=== PATIENT | male | born 1930 | race Hispanic/Latino ===

== ENCOUNTER 2017-02-14 22:51 | Emergency (ER) | payer MEDICARE, BC ==
[2017-02-14 23:14] VITALS: TEMP 97.7; O2SAT 97
[2017-02-14 23:25] VITALS: BMI 32.7
--- NOTE | 2017-02-14 23:47 | ED PDOC ---
Arrival/HPI - History of Present Illness Time/Duration: 24 hours Symptom Onset: Sudden Symptom Course: Worsening Context: Home <Bernadette Díaz - Last Filed: 02/15/17 01:23> <Pa Roldan - Last Filed: 02/15/17 21:18> - General Time Seen by Provider: 02/14/17 22:59 - History of Present Illness Narrative History of Present Illness (Text): 02/14/17 23:45 87 y/o M with past medical history of CAD on plavix and aspirin presents for bleeding from behind the left ear. Patient had biopsy of lesion yesterday at his doctor's office. Lesion had bandage over it. This morning when patient woke up, lesion began bleeding. (Bernadette Díaz) Past Medical History - Provider Review Nursing Documentation Reviewed: Yes - Travel History Have you recently traveled outside [place] w/in the past 3 mons?: No - Cardiac Hx Pacemaker: No - Neurological Hx Paralysis: No - Hematological/Oncological Hx Blood Transfusions: No Hx Blood Transfusion Reaction: No - Musculoskeletal/Rheumatological Hx Musculoskeletal Disorders: Yes - Psychiatric Hx Emotional Abuse: No Hx Physical Abuse: No Hx Substance Use: No - Surgical History Other/Comment: Cardiac bypass - Anesthesia Hx Anesthesia: Yes Hx Anesthesia Reactions: No Hx Malignant Hyperthermia: No - Suicidal Assessment Feels Threatened In Home Enviroment: No <Bernadette Díaz - Last Filed: 02/15/17 01:23> Family/Social History - Physician Review Nursing Documentation Reviewed: Yes Family/Social History: Unknown Family HX Smoking Status: Never Smoked Hx Alcohol Use: Yes (SCOTCH 2-3 PER WEEK) Hx Substance Use: No <Bernadette Daíz - Last Filed: 02/15/17 01:23> Allergies/Home Meds <Bernadette Díaz - Last Filed: 02/15/17 01:23> <Pa Roldan - Last Filed: 02/15/17 21:18> Allergies/Adverse Reactions: Allergies No Known Allergies Allergy (Verified 02/14/17 23:30) Home Medications: Home Meds Medication Instructions Recorded Confirmed Aspirin [Aspir 81] 81 mg PO DAILY 02/23/12 02/14/17 Atorvastatin Calcium 40 mg PO DAILY 02/23/12 02/14/17 Cholecalciferol (Vitamin D3) 50,000 unit PO Wed03/11/1617 [Vitamin D3] Clopidogrel [Plavix] 75 mg PO DAILY 03/11/16 02/14/17 Enalapril Maleate [Vasotec] 2.5 mg PO QAM 03/11/16 02/14/17 Isosorbide Mononitrate [Imdur] 60 mg PO QAM 03/11/16 02/14/17 Metoprolol Succinate 12.5 mg PO BID 03/11/16 02/14/17 Saxagliptin HCl [Onglyza] 5 mg PO QAM 03/11/16 02/14/17 Review of Systems - Review of Systems Constitutional: Normal. absent: Fatigue, Fevers Eyes: Normal. absent: Photophobia ENT: Normal. absent: Hearing Changes, Tinnitus, TMJ Pain Respiratory: Normal. absent: SOB, Cough, Sputum, Wheezing Cardiovascular: Normal. absent: Chest Pain, Edema, Calf Pain Gastrointestinal: Normal. absent: Constipation, Diarrhea, Nausea, Vomiting Genitourinary Male: Normal. absent: Dysuria, Frequency, Hematuria Musculoskeletal: Normal. absent: Arthralgias, Back Pain, Neck Pain Skin: Other (site of biopsy behind left ear that is noted to be oozing blood. ) Neurological: Normal. absent: Headache Endocrine: Normal. absent: Diaphoresis Hemo/Lymphatic: Normal, Easy Bleeding. absent: Adenopathy <Bernadette Díaz - Last Filed: 02/15/17 01:23> Physical Exam Vital Signs Reviewed: Yes Temperature: Afebrile Blood Pressure: Normal Pulse: Regular Respiratory Rate: Normal Appearance: Positive for: Well-Appearing, Non-Toxic, Comfortable Pain Distress: None Mental Status: Positive for: Alert and Oriented X 3 - Systems Exam Head: Present: Atraumatic, Normocephalic Pupils: Present: PERRL Extroacular Muscles: Present: EOMI Conjunctiva: Present: Normal Ears: Present: Other (bleeding from behind left ear ) Mouth: Present: Moist Mucous Membranes Neck: Present: Normal Range of Motion Respiratory/Chest: No: Respiratory Distress, Accessory Muscle Use Abdomen: No: Tenderness, Distention Upper Extremity: No: Edema Lower Extremity: No: Edema, CALF TENDERNESS Neurological: Present: GCS=15 Skin: Present: Warm, Dry, Normal Color, Other (lesion behind left ear ). No: Rashes Psychiatric: Present: Alert, Oriented x 3, Normal Insight, Normal Concentration <Bernadette Díaz - Last Filed: 02/15/17 01:23> Medical Decision Making <Bernadette Díaz - Last Filed: 02/15/17 01:23> <Pa Roldan - Last Filed: 02/15/17 21:18> ED Course and Treatment: 02/14/17 23:50 87 y/o male presents for bleeding from behind left ear from site of skin biopsy. Bleeding is controlled with cauterization. 02/15/17 00:54 Slight bleeding noted even after cauterization. Gel Foam applied to area. 02/15/17 01:25 Bleeding stopped after gel foam (Bernadette Díaz) Impression: Pt seen and evaluated with medical surgical tech. Pt, whose past medical history includes CAD, presented for bleeding to posterior left ear. Patient recently had biopsy performed at the site yesterday and woke up this morning with bleeding to the area. Aware and agree with HPI, clinical findings, plan, and management. Plan: -- Cautery -- Reassess and disposition Progress Notes: PROCEDURE: WOUND MANAGEMENT Performed by the emergency provider Consent: Informed consent was obtained after discussion of the risks, benefits, and alternatives to the procedure. Timeout: A timeout to verify the correct patient, procedure, and site was performed immediately prior to the procedure. Indication: Posterior ear bleeding control Location: Left posterior ear bleeding Bleeding Source: POSTERIOR left ear Cautery: Silver Nitrate Cautery Post-procedure: Good hemostasis. The patient was observed following procedure and no repeat episode of bleeding was noted. Patient tolerated the procedure well with no immediate complications. (Pa Roldan) - Medication Orders Current Medication Orders: Discontinued Medications Gelatin (Gelfoam Size 100) 1 spg MM ONCE ONE Stop: 02/15/17 00:43 Last Admin: 02/15/17 00:53 Dose: 1 spg - PA / PROPERTY CLAIMS MANAGER / Resident Statement / has reviewed & agrees with the documentation as recorded. / has examined the patient and agrees with the treatment plan. <Pa Roldan - Last Filed: 02/15/17 21:18> Disposition/Present on Arrival - Present on Arrival Any Indicators Present on Arrival: No History of DVT/PE: No History of Uncontrolled Diabetes: No Urinary Catheter: No History of Decub. Ulcer: No History Surgical Site Infection Following: None - Disposition Have Diagnosis and Disposition been Completed?: Yes Disposition Time: 01:24 Patient Plan: Discharge <Bernadette Díaz - Last Filed: 02/15/17 01:23> <Pa Roldan - Last Filed: 02/15/17 21:18> - Disposition Diagnosis: Bleeding Disposition: HOME/ ROUTINE Condition: GOOD Additional Instructions: Christiano Cisneros, thank you for letting us take care of you today. Your provider was Dr. Bernadette Díaz. You were treated for bleeding behind ear. The emergency medical care you received today was directed at your acute symptoms. If you were prescribed any medication, please fill it and take as directed. It may take several days for your symptoms to resolve. Return to the Emergency Department if your symptoms worsen, do not improve, or if you have any other problems. Please contact your doctor or call one of the physicians/clinics you have been referred to that are listed on the Patient Visit Information form that is included in your discharge packet. Bring any paperwork you were given at discharge with you along with any medications you are taking to your follow up visit. Our treatment cannot replace ongoing medical care by a primary care provider (PCP) outside of the emergency department. Thank you for allowing the [facility] team to be part of your care today. If you had an X-Ray or CT scan: A Radiologist will review the ED reading if any change in treatment is needed we will contact you. If you had a blood, urine, or wound culture: It will take several days for the results, if any change in treatment is needed we will contact you. If you had an STI test: It will take 48 hours for the results. Please call after 1 week if you have not heard back. Forms: [employer] ([place]
[2017-02-15] MEDS ORDERED: Absorbable Gelatin Sponge Size 100 MM ONE (00:42)
[2017-02-15 01:22] VITALS: BP 91/58; PULSE 70; RESP 18
== END 2017-02-15 01:40 | disposition home or self-care (01) ==
LOC: ED 22:51
DX: R58 Hemorrhage, not elsewhere classified (principal)

== ENCOUNTER 2018-08-09 07:16 | Outpatient (CLI) | payer MEDICARE, BC | END 2018-08-09 07:17 | disposition home or self-care (01) | LOC: RAD 07:16 ==